=== PATIENT | male | born 1960 | race Caucasian/White ===

== ENCOUNTER 2019-03-03 22:28 | Emergency (ER) | payer OTHER ==
[~2019-03-03] VITALS: Ht 175.3 cm; Wt 103.4 kg
[2019-03-03 22:34] VITALS: Ht 175.3 cm; Wt 103.4 kg
[2019-03-04 00:53] VITALS: BP 142/85
== END 2019-03-04 00:55 | disposition home or self-care (01) ==
LOC: ED 22:28
DX: M54.30 Sciatica, unspecified side (principal); E11.9 Type 2 diabetes mellitus without complications
CPT/HCPCS: 82962; J1885